=== PATIENT | female | born 1945 | race Caucasian/White ===

== ENCOUNTER → 2017-04-03 | Outpatient (REF) | payer MEDICARE, OTHER ==
[~2017-04-03] MED LIST: CALC600T7 PO; CIPR500T89 PO; LEVO500I7 PO; LEVOTHYROXINE PO; OMEP20TA PO; OMEPPOW18 PO; PERC5TAB6 PO; PERC7.5T12 PO; TAMS0.4C2 PO; TUMS500C PO; VITA10006 PO; VITA100072 PO; VITA200015 PO
== END ==
LOC: M SMT 12:39
PROVIDERS: ATTEND Nurse Practitioner Women's Health
DX: R31.0 Gross hematuria (principal)
CPT/HCPCS: 81001; 87088; 87186; G0463

== ENCOUNTER → 2017-04-06 | Outpatient (CLI) | payer MEDICARE, BC, OTHER ==
--- NOTE | 2017-04-06 16:47 | REP ---
Clinical: Gross hematuria and flank pain. Comparison: 01/21/2016. Findings: The left kidney demonstrates a large parapelvic cyst measuring approximately 6.1 cm confirmed by prior contrast enhanced CT as well as multiple nonobstructing calculi measuring up to approximately 12 mm without hydroureteronephrosis. The right kidney demonstrates a 3 cm anterior cyst confirmed by prior contrast enhanced CT and without nephrolithiasis or hydroureteronephrosis. The bladder is collapsed, but grossly normal in appearance. Liver, spleen, pancreas, and bilateral adrenal glands are normal. The patient is status post cholecystectomy and gastric bypass surgery. There is no evidence for bowel obstruction or acute inflammatory process. Colonic and sigmoid diverticula noted without acute diverticulitis. Normal terminal ileum and appendix identified in the right lower quadrant. Pelvis demonstrates age appropriate uterus / adnexa. No ascites. No free air. No adenopathy. Abdominal aorta without aneurysm. Musculoskeletal structures demonstrate age-related degenerative changes. Impression: 1. Bilateral renal cysts as described above confirmed by prior contrast enhanced CT dated 01/21/2016. Multiple nonobstructing left renal calculi up to approximately 12 mm. No associated hydronephrosis. 2. Colonic diverticula without acute diverticulitis. Signed by Neymar Agrawal MD 04/06/2017 04:38 P
== END ==
LOC: M RAD 16:09
PROVIDERS: ATTEND Nurse Practitioner Women's Health
DX: R31.0 Gross hematuria (principal); N28.1 Cyst of kidney, acquired; N20.0 Calculus of kidney; R10.9 Unspecified abdominal pain

== ENCOUNTER → 2017-04-18 | Outpatient (REF) | payer MEDICARE, OTHER ==
[~2017-04-18] MED LIST changes: +CALC-204 PO; +IRON18TA PO; +MULT1CHW39 PO; +POTA99TA PO; +VITA100054 PO; +VITA400C97 PO; +ZINCLOZ9 PO
== END ==
LOC: M SMT 17:01
PROVIDERS: ATTEND Nurse Practitioner Women's Health
DX: N39.0 Urinary tract infection, site not specified (principal)
CPT/HCPCS: 87086; G0463

== ENCOUNTER → 2017-04-21 | Outpatient (REF) | payer MEDICARE, OTHER ==
[~2017-04-21] MED LIST changes: -CALC-204 PO; -IRON18TA PO; -MULT1CHW39 PO; -POTA99TA PO; -VITA100054 PO; -VITA400C97 PO; -ZINCLOZ9 PO
== END ==
LOC: M SMT 13:04
PROVIDERS: ATTEND Nurse Practitioner Women's Health
DX: N39.0 Urinary tract infection, site not specified (principal)

== ENCOUNTER → 2017-05-04 | Outpatient (REF) | payer MEDICARE, OTHER ==
[~2017-05-04] MED LIST changes: +CALC-204 PO; +MULT1CHW39 PO; +POTA99TA PO; +VITA100054 PO; +VITA400C97 PO; +ZINCLOZ9 PO
[2017-05-04 19:49] LABS: MEAN CORPUSCULAR HEMOGLOBIN 31.2 pg (27.0-33.0); MEAN CORPUSCULAR HGB CONC 33.2 g/dl (32.0-36.5); MEAN CORPUSCULAR VOLUME 94.1 fl (80.0-96.0); RED CELL DISTRIBUTION WIDTH 12.5 % (11.5-14.5); WHITE BLOOD COUNT 9.3 K/mm3 (4.0-10.0)
[2017-05-04 20:02] LABS: ALBUMIN 3.9 GM/DL (3.2-5.2); ALKALINE PHOSPHATASE 131 U/L (45-117); ALT/SGPT 28 U/L (12-78); ANION GAP 6 MEQ/L (8-16); AST/SGOT 20 U/L (15-37); BILIRUBIN,TOTAL 0.5 MG/DL (0.2-1.0); BLOOD UREA NITROGEN 16 MG/DL (7-18); CALCIUM LEVEL 8.6 MG/DL (8.8-10.2); CARBON DIOXIDE LEVEL 29 MEQ/L (21-32); CHLORIDE LEVEL 105 MEQ/L (98-107); CREATININE FOR GFR 0.83 MG/DL (0.55-1.02); GLOMERULAR FILTRATION RATE > 60.0 (>39); GLUCOSE, FASTING 67 MG/DL (83-110); SODIUM LEVEL 140 MEQ/L (136-145); TOTAL PROTEIN 6.9 GM/DL (6.4-8.2)
== END ==
LOC: M SFHCADAM 15:44
PROVIDERS: ATTEND Physician Assistant
DX: Z01.812 Encounter for preprocedural laboratory examination (principal); N20.0 Calculus of kidney; E03.9 Hypothyroidism, unspecified

== ENCOUNTER → 2017-05-04 | Outpatient (CLI) | payer MEDICARE, BC, OTHER ==
[~2017-05-04] MED LIST changes: +CIPR-249 PO; +CIPR500T3 PO; -CIPR500T89 PO; +IRON18TA PO; +PERC5TAB12 PO; -PERC5TAB6 PO; +TYLE650T35 PO
--- NOTE | 2017-05-04 16:38 | REP ---
CHEST, TWO VIEWS: HISTORY: Preoperative. COMPARISON: 02/12/2016 A calcified granuloma is present in the left lower lobe. The right lung is clear. The heart is normal in size. The pulmonary vasculature is normal in appearance. Degenerative change is present in the thoracic spine. IMPRESSION: Old granulomatous disease. Signed by Carl Glover MD 05/04/2017 04:42 P
== END ==
LOC: M ADAMS 15:38
PROVIDERS: ATTEND Physician Assistant
DX: Z01.818 Encounter for other preprocedural examination (principal); N20.0 Calculus of kidney; E03.9 Hypothyroidism, unspecified
CPT/HCPCS: 71020; 80053; 84439; 84443; 85027; G0463

== ENCOUNTER → 2017-05-15 | Outpatient (CLI) | payer MEDICARE, BC, OTHER ==
[~2017-05-15] MED LIST changes: -CIPR-249 PO; +CIPR500T89 PO; +CIPROFLOXACIN/D5W 400 MG/200 ML BAG (J0744) As Ordered ONE; +ETHANOL ALCOHOL 98% INJ 5ML (DEHYDRATED) As Ordered ONE; +ISOVUE-300 61% 50ML VIAL (Q9967) As Ordered ONE; +LIDOCAINE 2% MDV 20 ML VIAL As Ordered ONE; +LR 1,000 ML IV SCH; +MEPERIDINE INJ 25 MG/ML VIAL (J2175) IV PRN; +MIDAZOLAM INJ 2 MG/2 ML VIAL (J2250) As Ordered ONE; +NALBUPHINE HCL 10 MG/ML AMP (J2300) IV PRN; +NORCO, ANEXSIA 5/325MG TABLET (HYDROcodone/ACETAMINOPHEN) PO PRN; +ONDANSETRON 4MG/2ML VIAL (J2405) IV PRN; -PERC5TAB12 PO; +PERC5TAB6 PO; +PERCOCET 5MG/325MG TAB As Ordered ONE; +PERCOCET 5MG/325MG TAB PO PRN; +PROMETHAZINE INJ 25 MG/ML VIAL (J2550) IV PRN; +fentaNYL 100 MCG/2 ML INJECTION (J3010) As Ordered ONE; +fentaNYL 100 MCG/2 ML INJECTION (J3010) IV PRN; +oxyBUTYnin 5 MG TAB PO ONE
[2017-05-15 13:45] VITALS: BP 164/77
--- NOTE | 2017-05-15 18:46 | REPKIM ---
CLINICAL HISTORY: Multiple kidney stones on the left. The referring urology service has asked a nephroureteral catheter (stent) placement/intervention for preop percutaneous nephrolithotripsy urology procedure on the left. Review of the previous cross sectional images showed a large parapelvic recurrent renal cyst compressing and displacing the collecting system on the left. 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 PROCEDURE PERFORMED: 1. Ultrasound Left Kidney 2. Percutaneous antegrade nephrostogram 3. Percutaneous Nephroureteral catheter (stent) placement via the upper pole ( lateral) calyx 4. Percutaneous parapelvic renal cyst drainage catheter placement, Sinogram and Sclerotherapy using alcohol INTERVENTIONALIST: Hayden Loaiza MD CONSENT: The risks, benefits and alternatives to the procedure were explained to the patient and informed written consent was obtained. SEDATION: Sedation and analgesia was provided by the Anesthesiology Dept. MEDICATIONS: Cipro 400mg IV, Local Lidocaine, EtOH EBL: less than 10 mL FLUORO TIME: 14.1 minutes CONTRAST: 30 mL Isovue 300 DEVICES USED: 8.5F 45-cm Catheter; Nephroureteral Catheter Lot#[id number] 6.5F Parapelvic Cyst Resolve Catheter Lot#[id number] PROCEDURE/FINDINGS: The patient received Cipro IV antibiotic. The patient was brought to the interventional radiology suite and placed in the prone position, prepped and draped in the usual sterile fashion. Time out procedure was performed. Ultrasound of the left kidney showed mildly dilated calyces. A large parapelvic renal cyst also identified and localized. NEPHROSTOGRAM AND NU STENT PLACEMENT: Using ultrasound and fluoroscopy guidance , a 21-gauge needle was advanced into the targeted calyx leading to kidney stones, after infiltration of the skin and deep tissues with local anesthetic. Contrast was gently hand injected and antegrade nephrostogram was obtained. Nephrostogram showed opacification of collecting system and renal pelvis containing multiple renal stones. The lower pole calyces projecting medial and cephalad direction and upper pole calyces are seen projecting in the lateral position due to malrotation. Both lower pole and upper pole calyces are displaced from the known large parapelvic cyst. An access was then obtained into the upper pole (lateral) calyx directly leading to kidney stones in the renal pelvis. Using this access a hydrophilic guidewire was introduced, and advanced across the renal stones, into the UPJ/ureter then with its tip positioned into the urinary bladder. A 5-Bengali vascular sheath was introduced with its tip positioned in the renal pelvis. Contrast injection showed patent ureter with antegrade flow of contrast into the urinary bladder. This also showed no filling or communication with the adjacent parapelvic renal cyst. Wire exchange was performed and a stiff guidewire was introduced. An 8.5-Bengali nephroureteral drainage catheter (stent) was introduced over the guidewire. The guidewire was removed and the distal loop of the drainage catheter was curled in the bladder. The nephroureteral catheter was then flushed and capped. PARAPELVIC RENAL CYST DRAINAGE CATHETER PLACEMENT, SINOGRAM AND SCLEROTHERAPY: Using ultrasound and fluoroscopy guidance, a 21-gauge needle was advanced into the targeted parapelvic renal cyst, after infiltration of the skin and deep tissues with local anesthetic. Using this access, a 6.5 Bengali drainage catheter was placed using the Seldinger technique. Contrast injection showed no obvious communication with the adjacent collecting system. Approximately 70 mL of fluid was aspirated. A sample of the renal cyst fluid sent for cytology and culture. The catheter was secured to the skin using 2-0 Prolene suture. The cavity was then aspirated. A total of 20 mL of alcohol was then instilled in the renal cyst for ablation. This was then aspirated out. The catheter was then flushed and connected to a gravity bag. The patient tolerated the procedure well with no immediate complications. This procedure was performed using ultrasound and fluoroscopy. Dr. Loaiza was present. IMPRESSION: 1. Mal-rotaed left kidney with multiple kidney stones in the renal pelvis. The upper pole calyces are located in the lateral and the lower pole calyces are located in the medial aspect as discussed above. The large parapelvic renal cyst compresses and displaces the adjacent collecting system causing hydronephrosis; dilated lower and upper pole calyces. 2. Successful 8.5F nephroureteral catheter (stent) placement via the upper pole (lateral) calyx with its distal loop curled in the urinary bladder. 3. Successful 6.5F parapelvic renal cyst drainage catheter placement, sinogram and sclerotherapy using alcohol as discussed above. A sample of renal cyst fluid sent for cytology and culture. This nephroureteral access will be used for subsequent percutaneous nephrolithotripsy urology procedure on 05/17/17. Continue external drainage of the symptomatic parapelvic renal cyst. I plan to remove the renal cyst drainage catheter on Monday05/17/17 in the preop holding area. These findings and plan discussed via phone with Dr. Joyce. cc: MD Hilary Mtz, [employer] WORKER Ankita Valle, MARIA TERESA DAVIS
== END | disposition home or self-care (01) ==
LOC: M IRPRO 08:47
PROVIDERS: ATTEND Nurse Practitioner Women's Health
DX: N20.0 Calculus of kidney (principal); N28.1 Cyst of kidney, acquired
CPT/HCPCS: 49405; 50433; 87070; 87075; 87205; 88108; 88313; C1729; C1769; C1887; C1894; J0744; J2250; J3010; Q9967

== ENCOUNTER 2017-05-17 08:54 | Inpatient (IN) | payer MEDICARE, BC, OTHER ==
[~2017-05-17] VITALS: Ht 154.9 cm; Wt 90.7 kg
[~2017-05-17 08:54] MED LIST changes: +CIPR-249 PO; -CIPR500T3 PO; -CIPR500T89 PO; -CIPROFLOXACIN/D5W 400 MG/200 ML BAG (J0744) As Ordered ONE; -ETHANOL ALCOHOL 98% INJ 5ML (DEHYDRATED) As Ordered ONE; -IRON18TA PO; -ISOVUE-300 61% 50ML VIAL (Q9967) As Ordered ONE; -LIDOCAINE 2% MDV 20 ML VIAL As Ordered ONE; -LR 1,000 ML IV SCH; -MEPERIDINE INJ 25 MG/ML VIAL (J2175) IV PRN; -MIDAZOLAM INJ 2 MG/2 ML VIAL (J2250) As Ordered ONE; -NALBUPHINE HCL 10 MG/ML AMP (J2300) IV PRN; -NORCO, ANEXSIA 5/325MG TABLET (HYDROcodone/ACETAMINOPHEN) PO PRN; -ONDANSETRON 4MG/2ML VIAL (J2405) IV PRN; +PERC5TAB12 PO; -PERC5TAB6 PO; -PERCOCET 5MG/325MG TAB As Ordered ONE; -PERCOCET 5MG/325MG TAB PO PRN; -PROMETHAZINE INJ 25 MG/ML VIAL (J2550) IV PRN; -TYLE650T35 PO; -fentaNYL 100 MCG/2 ML INJECTION (J3010) As Ordered ONE; -fentaNYL 100 MCG/2 ML INJECTION (J3010) IV PRN; -oxyBUTYnin 5 MG TAB PO ONE
[2017-05-17] MEDS ORDERED: LR 1,000 ML IV ONE (09:15)
[2017-05-17] MEDS ORDERED: CIPROFLOXACIN 400 MG in APPROPRIATE DILUENT 1 EA IV ONE (09:30)
[2017-05-17] MEDS ORDERED: IRON18TA PO (10:36)
[2017-05-17] MEDS ORDERED: CONRAY-60 60% 50ML VIAL (Q9961) As Ordered ONE (12:42)
[2017-05-17] MEDS ORDERED: fentaNYL 100 MCG/2 ML INJECTION (J3010) As Ordered ONE (13:49)
[2017-05-17] MEDS ORDERED: MIDAZOLAM INJ 2 MG/2 ML VIAL (J2250) As Ordered ONE (13:49)
[2017-05-17] MEDS ORDERED: ONDANSETRON 4MG/2ML VIAL (J2405) As Ordered ONE (13:51)
[2017-05-17] MEDS ORDERED: PROPOFOL 500 MG/50 ML VIAL As Ordered ONE (13:51)
[2017-05-17] MEDS ORDERED: dexameTHASONE 4 MG/ML 1ML VIAL (J1100) As Ordered ONE (13:51)
[2017-05-17] MEDS ORDERED: NEOSTIGMINE 1MG/ML 5 ML SYRINGE (J2710) As Ordered ONE (13:51)
[2017-05-17] MEDS ORDERED: ROCURONIUM BROMIDE 50 MG/5 ML VIAL/SYRINGE As Ordered ONE (13:51)
[2017-05-17] MEDS ORDERED: GLYCOPYRROLATE INJ 0.2 MG/ML 2 ML VIAL As Ordered ONE (13:51)
[2017-05-17] MEDS ORDERED: HYDROmorphone HCL 2 MG/ML 1ML VIAL (J1170) As Ordered ONE (13:54)
[2017-05-17] MEDS ORDERED: LIDOCAINE 2% INJ 100 MG/5 ML SDV (FOR ANES.) As Ordered ONE (13:56)
--- NOTE | 2017-05-17 15:05 | REP ---
RETROGRADE PYELOGRAM: THREE VIEWS. HISTORY: Left renal stones. 3 minutes 19 seconds of fluoroscopy time is reported. FINDINGS: A sequence of three, last image hold fluoroscopic spot radiographs of the left upper quadrant document percutaneous large tract access of the intrarenal collecting system of the left kidney and left ureteral stent placement. Signed by Ben Martin MD 05/17/2017 03:24 P
[2017-05-17 15:37] LABS: MEAN CORPUSCULAR HEMOGLOBIN 31.5 pg (27.0-33.0); MEAN CORPUSCULAR HGB CONC 33.7 g/dl (32.0-36.5); MEAN CORPUSCULAR VOLUME 93.3 fl (80.0-96.0); RED CELL DISTRIBUTION WIDTH 12.4 % (11.5-14.5); WHITE BLOOD COUNT 9.9 K/mm3 (4.0-10.0)
[2017-05-17] MEDS ORDERED: MEPERIDINE INJ 25 MG/ML VIAL (J2175) IV PRN (15:45)
[2017-05-17] MEDS ORDERED: ONDANSETRON 4MG/2ML VIAL (J2405) IV PRN ×2 (15:45)
[2017-05-17] MEDS ORDERED: MORPHINE 4 MG/ML 1ML SYRINGE IV PRN (15:45)
[2017-05-17] MEDS ORDERED: fentaNYL 100 MCG/2 ML INJECTION (J3010) IV PRN (15:45)
[2017-05-17] MEDS ORDERED: oxyCODONE 5MG TAB PO PRN (15:45)
[2017-05-17] MEDS ORDERED: METOCLOPRAMIDE INJ 10MG/2ML VIAL (J2765) IV PRN (15:45)
[2017-05-17] MEDS ORDERED: PERCOCET 5MG/325MG TAB PO PRN (15:45)
[2017-05-17] MEDS ORDERED: LR 1,000 ML IV SCH (15:45)
[2017-05-17 15:51] LABS: ANION GAP 5 MEQ/L (8-16); BLOOD UREA NITROGEN 14 MG/DL (7-18); CALCIUM LEVEL 8.4 MG/DL (8.8-10.2); CARBON DIOXIDE LEVEL 30 MEQ/L (21-32); CHLORIDE LEVEL 103 MEQ/L (98-107); CREATININE FOR GFR 0.92 MG/DL (0.55-1.02); GLOMERULAR FILTRATION RATE > 60.0 (>39); GLUCOSE, FASTING 131 MG/DL (83-110); POTASSIUM SERUM 4.2 MEQ/L (3.5-5.1); SODIUM LEVEL 138 MEQ/L (136-145)
[2017-05-17 16:30] VITALS: BP 144/91
[2017-05-17 17:00] VITALS: BP 150/70
[2017-05-17] MEDS: CIPROFLOXACIN 500 MG TAB PO SCH (17:12)
[2017-05-17 18:00] VITALS: BP 142/70
[2017-05-17 19:00] VITALS: BP 150/68
[2017-05-17 20:00] VITALS: BP 129/67
[2017-05-17 21:00] VITALS: BP 124/63
[2017-05-17] MEDS ORDERED: PANTOPRAZOLE 40MG INJ (PROTONIX) (C9113) IV SCH (21:00)
[2017-05-17] MEDS: ACETAMINOPHEN 650MG ER TAB (TYLENOL ARTHRITIS) PO SCH (21:31)
[2017-05-18 01:00] VITALS: BP 131/63
[2017-05-18] MEDS: CIPROFLOXACIN 500 MG TAB PO SCH (05:58)
[2017-05-18] MEDS: ACETAMINOPHEN 650MG ER TAB (TYLENOL ARTHRITIS) PO SCH ×2 (05:58→13:29)
[2017-05-18 06:00] VITALS: BP 126/63
[2017-05-18] MEDS ORDERED: LEVOTHYROXINE 100MCG TABLET (0.1MG) PO SCH (06:00)
[2017-05-18 06:25] LABS: MEAN CORPUSCULAR HEMOGLOBIN 31.2 pg (27.0-33.0); MEAN CORPUSCULAR HGB CONC 34.2 g/dl (32.0-36.5); MEAN CORPUSCULAR VOLUME 91.2 fl (80.0-96.0); RED CELL DISTRIBUTION WIDTH 12.3 % (11.5-14.5); WHITE BLOOD COUNT 13.4 K/mm3 (4.0-10.0)
[2017-05-18 06:50] LABS: ANION GAP 6 MEQ/L (8-16); BLOOD UREA NITROGEN 15 MG/DL (7-18); CALCIUM LEVEL 8.7 MG/DL (8.8-10.2); CARBON DIOXIDE LEVEL 28 MEQ/L (21-32); CHLORIDE LEVEL 106 MEQ/L (98-107); CREATININE FOR GFR 0.96 MG/DL (0.55-1.02); GLOMERULAR FILTRATION RATE > 60.0 (>39); GLUCOSE, FASTING 103 MG/DL (83-110); POTASSIUM SERUM 4.2 MEQ/L (3.5-5.1); SODIUM LEVEL 140 MEQ/L (136-145)
--- NOTE | 2017-05-18 11:21 | RO ---
DATE OF PROCEDURE: 05/17/2017 PREPROCEDURE DIAGNOSIS: Left kidney stones. POSTPROCEDURE DIAGNOSIS: Left kidney stones. PROCEDURE: Left percutaneous nephrolithotripsy plus antegrade double J stent placement #6-Guamanian Ashland Cook. SURGEON: Dr. Juan Francisco Joyce PACKING ROOM INSPECTOR: None. ANESTHESIA: General. COMPLICATIONS: None. ESTIMATED BLOOD LOSS: N/A HISTORY OF PRESENT ILLNESS: This is a 71-year-old female patient that has left kidney stones , a number of six stones. The total stone border is about 4 cm in diameter. For this reason, she has consented for left percutaneous nephrolithotripsy, plus antegrade double J stent placement. DESCRIPTION OF PROCEDURE: The patient in prone position under general anesthesia with the Nickerson catheter draining the bladder, a #16-Guamanian in diameter with 10 mL balloon. We started by prepping and draping the area of concern, which included the left flank. We then proceeded to cut the nephroureteral stent and pass the guidewire down to the bladder. We took the nephroureteral stent out. We extended the incision of the nephroureteral stent in the skin for about 2 cm in diameter and placed a double lumen catheter down to the proximal ureter and placed a second guidewire down to the bladder. We the took a double lumen catheter and following one of the guidewire, we passed a balloon dilator and dilated the nephrostomy tract to 30 Charriere. Once the balloon was dilated and the nephrostomy tract was dilated, we placed Amplatz sheath passing through on top of the balloon and left it in place. We then deflated the balloon and took out the balloon. We had access to the kidney. With a rigid nephroscope, we actually did nephroscopy and with sharp pulls, we sucked all the small pieces of stones from the renal pelvis. We then introduced a flexible cystoscope up to the upper pole. With a 0 tip basket, 1.9 Guamanian in diameter, we grabbed one by one 2 cm stones in the upper pole times four. We then went to the mid pole and with flexible cystoscopy also grabbed with the 0 tip basket, two other stones. Once the kidney was cleared from all of the stones, we did a nephrostogram and there was no stones left after doing a nephroscopy with a flexible cystoscope. We then proceeded to extract the cystoscope and pass a double J stent following one of the guidewires down to the bladder. Once it was in good position, we could take the guidewire and we could see the curl in the kidney and the curl in the bladder. We then took out the Amplatz sheath and passed a Councill tip catheter up to the renal pelvis #6-18 Guamanian in diameter. We took the guidewire out and secured the Councill tip to the skin with a #0-6 silk stitch times three. We then proceeded to do a nephrostomy and there was n no extravasation at all. We then placed a nephrostomy tube to gravity. We placed ABD pads and Tegaderm on top of the nephrostomy tract. PLAN: The patient will pass to the recovery room to the floor. Tomorrow, she will have a CT scan of the abdomen and pelvis, noncontrast to evaluate the upper tract and see that there are no stones left. If there are no stones, we will take the nephrostomy tube out and the Nickerson catheter and she will be discharged home with a double J stent to be taken out 1-2 weeks after in the [facility].
[2017-05-18] MEDS ORDERED: TYLE650T35 PO (16:42)
[2017-05-18] MEDS ORDERED: CIPR500T3 PO (16:42)
--- NOTE | 2017-05-19 08:49 | DSES ---
DATE OF ADMISSION: 05/17/2017 DATE OF DISCHARGE: 05/18/2017 ADMISSION DIAGNOSIS: Left renal stone. DISCHARGE DIAGNOSIS: Left renal stone. SURGERY PERFORMED: Left percutaneous nephrolithotripsy plus antegrade double J stent placement. Surgery performed by Dr. Juan Francisco Joyce. HISTORY OF PRESENT ILLNESS: 71-year-old female patient that had six stones in the left kidney. The total stone border is more than 4 cm. For this reason, she had a nephroureteral stent placement by interventional radiology 24 hours ago. She was consented for a left percutaneous nephrolithotripsy plus antegrade double J stent placement on 05/17/2017. After this procedure, she was admitted. HOSPITAL COURSE: The patient did very well. By postoperative day #1 was tolerated a regular diet. Pain was controlled with oral pain medication. Her urine output was adequate and clear. For this reason on postoperative day #1 we discontinued the nephrostomy tube and placed a urostomy back on the surgical site. The Nickerson catheter was discontinued and the patient voided without any complaints. She requested to go home and we agreed upon this. She will go home with the following medications: - antibiotics, ciprofloxacin 500 mg one tablet by mouth twice a day for 10 days. - Tylenol 650 ER one tablet by mouth every 6 hours as needed for pain. The patient will go home today. She will followup at [facility] in about 2 weeks for removal of the left double J sten. [facility]CH[facility]ATRIC CENTERDeepthi
[2017-06-01 00:06] LABS: Uric Acid 35 % (.)
== END 2017-05-18 17:30 | disposition home or self-care (01) | DRG 661 ==
LOC: M OR 08:54 → M MS5PR 16:17
PROVIDERS: ADMIT Urology; ATTEND Urology
PROC: 0T773DZ Dilation of Left Ureter with Intraluminal Device, Percutaneous Approach (ICD-10-PCS; 2017-05-17)
PROC: 0TC13ZZ Extirpation of Matter from Left Kidney, Percutaneous Approach (ICD-10-PCS; principal; 2017-05-17 11:45)
DX: N20.0 Calculus of kidney (principal); K76.0 Fatty (change of) liver, not elsewhere classified; Z79.899 Other long term (current) drug therapy; E55.9 Vitamin D deficiency, unspecified; K21.9 Gastro-esophageal reflux disease without esophagitis; E03.9 Hypothyroidism, unspecified; Z98.84 Bariatric surgery status; Z87.891 Personal history of nicotine dependence

== ENCOUNTER → 2017-06-28 | Outpatient (REF) | payer MEDICARE, OTHER ==
[~2017-06-28] MED LIST changes: +CIPR500T3 PO; +IRON18TA PO; +TYLE650T35 PO
== END ==
LOC: M SMT 17:15
PROVIDERS: ATTEND Nurse Practitioner Women's Health
DX: N20.0 Calculus of kidney (principal)

== ENCOUNTER → 2017-07-25 | Outpatient (REF) | payer MEDICARE, OTHER | LOC: M SMT 12:51 | PROVIDERS: ATTEND Nurse Practitioner Women's Health | DX: N39.0 Urinary tract infection, site not specified (principal) ==

== ENCOUNTER → 2018-02-08 | Outpatient (CLI) | payer MEDICARE, BC, OTHER ==
[2018-02-08 14:05] LABS: IONIZED CALCIUM 4.8 MG/DL (4.5-5.3)
[2018-02-08 16:09] LABS: ANION GAP 6 MEQ/L (8-16); BLOOD UREA NITROGEN 20 MG/DL (7-18); CALCIUM LEVEL 9.1 MG/DL (8.8-10.2); CARBON DIOXIDE LEVEL 28 MEQ/L (21-32); CHLORIDE LEVEL 107 MEQ/L (98-107); CREATININE FOR GFR 0.97 MG/DL (0.55-1.30); GLOMERULAR FILTRATION RATE > 60.0 (>39); GLUCOSE, FASTING 86 MG/DL (70-100); MAGNESIUM LEVEL 2.4 MG/DL (1.8-2.4); POTASSIUM SERUM 4.6 MEQ/L (3.5-5.1); SODIUM LEVEL 141 MEQ/L (136-145); URIC ACID 3.3 MG/DL (2.6-6.0)
[2018-02-08 18:30] LABS: PTH INTACT 80.9 PG/ML (18.5-88.0)
== END ==
LOC: M SMT 11:24
DX: N20.0 Calculus of kidney (principal)
CPT/HCPCS: 83735

== ENCOUNTER → 2018-04-05 | Outpatient (REF) | payer MEDICARE, OTHER ==
[2018-04-05 19:10] LABS: HEMATOCRIT 38.5 % (36.0-47.0); HEMOGLOBIN 12.3 g/dl (12.0-15.5); MEAN CORPUSCULAR HEMOGLOBIN 30.6 pg (27.0-33.0); MEAN CORPUSCULAR HGB CONC 31.9 g/dl (32.0-36.5); MEAN CORPUSCULAR VOLUME 95.8 fl (80.0-96.0); PLATELET COUNT, AUTOMATED 237 10^3/uL (150-450); RED BLOOD COUNT 4.02 10^6/uL (4.00-5.40); RED CELL DISTRIBUTION WIDTH 12.8 % (11.5-14.5); WHITE BLOOD COUNT 9.6 10^3/uL (4.0-10.0)
[2018-04-05 19:38] LABS: ALBUMIN/GLOBULIN RATIO 1.25 (1.00-1.93); ALKALINE PHOSPHATASE 108 U/L (45-117); ALT/SGPT 25 U/L (12-78); ANION GAP 7 MEQ/L (8-16); AST/SGOT 19 U/L (7-37); BILIRUBIN,TOTAL 0.4 MG/DL (0.2-1.0); BLOOD UREA NITROGEN 25 MG/DL (7-18); CALCIUM LEVEL 8.8 MG/DL (8.8-10.2); CARBON DIOXIDE LEVEL 27 MEQ/L (21-32); CHLORIDE LEVEL 108 MEQ/L (98-107); CREATININE FOR GFR 0.91 MG/DL (0.55-1.30); FREE T4 0.87 NG/DL (0.76-1.46); GLOMERULAR FILTRATION RATE > 60.0 (>39); GLUCOSE, FASTING 103 MG/DL (70-100); POTASSIUM SERUM 3.7 MEQ/L (3.5-5.1); SODIUM LEVEL 142 MEQ/L (136-145); TOTAL PROTEIN 7.2 GM/DL (6.4-8.2)
[2018-04-05 23:30] LABS: TOTAL 25(OH) VITAMIN D 23.2 NG/ML (30.0-100.0)
== END ==
LOC: M SFHCADAM 12:02
DX: R60.9 Edema, unspecified (principal); Z98.84 Bariatric surgery status; E03.9 Hypothyroidism, unspecified; E55.9 Vitamin D deficiency, unspecified
CPT/HCPCS: 84443

== ENCOUNTER → 2019-04-02 | Outpatient (REF) | payer MEDICARE, OTHER ==
[~2019-04-02] MED LIST changes: -MULT1CHW39 PO; +MULT200T7 PO; +VITA100018 PO; -VITA100072 PO
[2019-04-02 20:24] LABS: HEMATOCRIT 38.6 % (36.0-47.0); HEMOGLOBIN 12.1 g/dl (12.0-15.5); MEAN CORPUSCULAR HEMOGLOBIN 30.1 pg (27.0-33.0); MEAN CORPUSCULAR HGB CONC 31.3 g/dl (32.0-36.5); PLATELET COUNT, AUTOMATED 258 10^3/uL (150-450); RED BLOOD COUNT 4.02 10^6/uL (4.00-5.40); WHITE BLOOD COUNT 9.5 10^3/uL (4.0-10.0)
[2019-04-02 21:23] LABS: ALBUMIN 3.7 GM/DL (3.2-5.2); ALT/SGPT 36 U/L (12-78); BILIRUBIN,TOTAL 0.4 MG/DL (0.2-1.0); BLOOD UREA NITROGEN 21 MG/DL (7-18); CALCIUM LEVEL 8.4 MG/DL (8.8-10.2); CARBON DIOXIDE LEVEL 28 MEQ/L (21-32); CHLORIDE LEVEL 107 MEQ/L (98-107); CHOLESTEROL LEVEL 145 MG/DL (<200); CHOLESTEROL RISK RATIO 3.625 (<5); CREATININE FOR GFR 0.82 MG/DL (0.55-1.30); FERRITIN 355 NG/ML (8-252); FOLATE 23.5 NG/ML (>5.4); FREE T4 0.79 NG/DL (0.76-1.46); GLOMERULAR FILTRATION RATE > 60.0 (>39); GLUCOSE, FASTING 98 MG/DL (70-100); HDL CHOLESTEROL 40 MG/DL (>40); LDL CHOLESTEROL 54 MG/DL (<100); NON-HDL-C 105 MG/DL; POTASSIUM SERUM 3.9 MEQ/L (3.5-5.1); SODIUM LEVEL 141 MEQ/L (136-145); TOTAL 25(OH) VITAMIN D 25.3 NG/ML (30.0-100.0); TOTAL PROTEIN 7.3 GM/DL (6.4-8.2); TRIGLYCERIDES LEVEL 253 MG/DL (<150); VITAMIN B12 LEVEL > 2000 PG/ML (247-911)
== END ==
LOC: M SFHCADAM 11:08
PROVIDERS: ATTEND Family Medicine
DX: R60.9 Edema, unspecified (principal); E03.9 Hypothyroidism, unspecified; R30.0 Dysuria; Z98.84 Bariatric surgery status; E55.9 Vitamin D deficiency, unspecified; Z68.32 Body mass index [BMI] 32.0-32.9, adult; K75.81 Nonalcoholic steatohepatitis (NASH)

== ENCOUNTER → 2019-04-11 | Outpatient (CLI) | payer MEDICARE, BC, OTHER ==
--- NOTE | 2019-04-11 17:03 | REP ---
Clinical: Left carotid bruit. Technique: Lopez scale and color Doppler evaluation using linear high frequency transducer Findings: Two-dimensional lopez scale and color images demonstrate normal arterial lumen with laminar flow and no appreciable narrowing. Small focus of calcified plaque identified at the right carotid bulb and small amount of soft plaque noted at the left carotid bulb/proximal internal carotid artery. Color Doppler interrogation demonstrates normal arterial wave patterns and velocities with no significant spectral broadening. Normal flow direction is appreciated in the bilateral vertebral arteries. RIGHT (cm/s) LEFT (cm/s) ICA peak systolic velocity 61.0 68.0 ICA diastolic velocity 21.7 21.0 ECA peak systolic velocity 73.9 53.1 CCA peak systolic velocity 80.9 88.8 ICA/CCA ratio 0.75 0.77 Impression: No hemodynamically significant areas of narrowing or stenosis appreciated. Based on set standards narrowing falls within the normal/less than 50% range. Electronically Signed by Neymar Agrawal MD 04/11/2019 04:55 P
== END ==
LOC: M RAD 14:55
PROVIDERS: ATTEND Family Medicine
DX: R09.89 Other specified symptoms and signs involving the circulatory and respiratory systems (principal)

== ENCOUNTER → 2019-04-24 | Outpatient (CLI) | payer MEDICARE, BC, OTHER ==
--- NOTE | 2019-04-24 18:25 | ECHO ---
DATE OF PROCEDURE: 04/24/2019 AGE: 73 GENDER: Female HEIGHT: 62 inches WEIGHT: 200 pounds BODY SURFACE AREA: 1.91 m2 PATIENT LOCATION: Outpatient. REFERRING PHYSICIAN: Dr. Valle INDICATION: Aortic valve abnormality. 2-D MEASUREMENTS: RV: 3.5 cm LV: 4.8 cm Septum: 0.9 cm Posterior wall: 0.9 cm Aortic root: 3.4 cm Proximal ascending aorta 4.1 cm LA: 4.3 cm LVEF: 75% DOPPLER MEASUREMENTS: AV: 2.2 m/s LVOT: 1.2 m/s LVOT diameter: 1.9 cm Mean AV gradient: 9 mmHg Dimensionless index: 0.58 MV-E: 81 A: 91, EA ratio: 0.9 Early mitral deceleration time 229 ms E prime: 6.6, A prime: 8.2, E/E prime ratio: 12.3 PCWP: 14 mmHg PV: 1.0 m/s Pulmonary artery acceleration time: 100 ms RSVP: 38 mmHg IVC: 2.2 cm COMMENTS: Normal sinus rhythm without intraventricular conduction disturbance. M-mode and two-dimensional echocardiography was performed with pulsed, continuous wave, color flow and tissue Doppler studies. Normal left ventricular size, wall thickness and hyperkinetic wall motion. Mildly dilated left atrium with Doppler evidence of an impairment of LV diastolic function but current estimated mean left atrial pressure upper limits of normal. Normal right heart chamber sizes and motion with Doppler evidence of mild pulmonary hypertension. IVC size upper limits of normal with normal respiratory collapse against an elevated central venous pressure. Mild aortic valvular sclerosis without stenosis and mild insufficiency. Normal aortic root size but slightly dilated proximal ascending aorta. The aortic arch was normal in diameter as was the descending thoracic aorta that was visualized. Slight thickening of the mitral annulus without functional valvular abnormality. Normal tricuspid valve appearance with mild insufficiency. No apparent intracardiac mass or pericardial effusion.
== END ==
LOC: M CARPUL 10:23
PROVIDERS: ATTEND Family Medicine
DX: Q23.9 Congenital malformation of aortic and mitral valves, unspecified (principal)

== ENCOUNTER → 2020-02-05 | Outpatient (REF) | payer MEDICARE, OTHER ==
[~2020-02-05] MED LIST changes: +OMEP-358 PO; -OMEP20TA PO
[2020-02-05 16:24] LABS: APPEARANCE, URINE CLOUDY (CLEAR); BACTERIA, URINE AUTO 2+ (NEGATIVE); BILIRUBIN, URINE AUTO NEGATIVE (NEGATIVE); BLOOD, URINE BLOOD 3+ (NEGATIVE); CALCIUM OXALATE CRYSTALS LARGE; COLOR, URINE AMBER (YELLOW); GLUCOSE, URINE (UA) AUTO NEGATIVE (NEGATIVE); KETONE, URINE AUTO NEGATIVE (NEGATIVE); LEUKOCYTE ESTERASE, URINE AUTO 3+ (NEGATIVE); MUCUS, URINE SMALL (NEGATIVE); NITRITE, URINE AUTO NEGATIVE (NEGATIVE); PROTEIN, URINE AUTO 2+ mg/dL (NEGATIVE); RBC, URINE AUTO TNTC /HPF (0-3); SPECIFIC GRAVITY URINE AUTO 1.027 (1.002-1.035); SQUAMOUS EPITHELIAL CELL UR AU 0 /HPF (0-6); UROBILINOGEN, URINE AUTO 0.2 mg/dL (0.0-2.0); WBC, URINE AUTO TNTC /HPF (0-3)
== END ==
LOC: M SFHCADAM 15:11
PROVIDERS: ATTEND Family Medicine
DX: R30.0 Dysuria (principal)

== ENCOUNTER → 2020-04-16 | Outpatient (REF) | payer MEDICARE, BC, OTHER ==
[~2020-04-16] MED LIST changes: +ACET650T61 PO; +CALC-212 PO; -CALC600T7 PO; -TYLE650T35 PO
[2020-04-16 18:38] LABS: HEMATOCRIT 39.9 % (36.0-47.0); MEAN CORPUSCULAR HEMOGLOBIN 31.4 pg (27.0-33.0); MEAN CORPUSCULAR HGB CONC 32.6 g/dl (32.0-36.5); MEAN CORPUSCULAR VOLUME 96.4 fl (80.0-96.0); PLATELET COUNT, AUTOMATED 246 10^3/uL (150-450); RED BLOOD COUNT 4.14 10^6/uL (4.00-5.40); WHITE BLOOD COUNT 11.3 10^3/uL (4.0-10.0)
[2020-04-16 18:50] LABS: APPEARANCE, URINE TURBID (CLEAR); BACTERIA, URINE AUTO NEGATIVE (NEGATIVE); BILIRUBIN, URINE AUTO NEGATIVE (NEGATIVE); BLOOD, URINE BLOOD 3+ (NEGATIVE); COLOR, URINE AMBER (YELLOW); GLUCOSE, URINE (UA) AUTO NEGATIVE (NEGATIVE); KETONE, URINE AUTO NEGATIVE (NEGATIVE); LEUKOCYTE ESTERASE, URINE AUTO 2+ (NEGATIVE); MUCUS, URINE SMALL (NEGATIVE); NITRITE, URINE AUTO NEGATIVE (NEGATIVE); PROTEIN, URINE AUTO 2+ mg/dL (NEGATIVE); RBC, URINE AUTO TNTC /HPF (0-3); SPECIFIC GRAVITY URINE AUTO 1.019 (1.002-1.035); SQUAMOUS EPITHELIAL CELL UR AU 3 /HPF (0-6); UROBILINOGEN, URINE AUTO 0.2 mg/dL (0.0-2.0); WBC, URINE AUTO TNTC /HPF (0-3)
[2020-04-16 18:59] LABS: ALBUMIN 4.1 GM/DL (3.2-5.2); ALT/SGPT 32 U/L (12-78); BILIRUBIN,TOTAL 0.6 MG/DL (0.2-1.0); BLOOD UREA NITROGEN 22 MG/DL (7-18); CALCIUM LEVEL 9.2 MG/DL (8.8-10.2); CARBON DIOXIDE LEVEL 28 MEQ/L (21-32); CHLORIDE LEVEL 106 MEQ/L (98-107); CHOLESTEROL LEVEL 156 MG/DL (<200); CHOLESTEROL RISK RATIO 3.319 (<5); CREATININE FOR GFR 0.89 MG/DL (0.55-1.30); FERRITIN 415 NG/ML (8-252); FREE T4 0.92 NG/DL (0.76-1.46); GLOMERULAR FILTRATION RATE > 60.0 (>39); GLUCOSE, FASTING 93 MG/DL (70-100); HDL CHOLESTEROL 47 MG/DL (>40); LDL CHOLESTEROL 73 MG/DL (<100); NON-HDL-C 109 MG/DL; POTASSIUM SERUM 4.4 MEQ/L (3.5-5.1); SODIUM LEVEL 142 MEQ/L (136-145); TOTAL PROTEIN 7.1 GM/DL (6.4-8.2); TRIGLYCERIDES LEVEL 178 MG/DL (<150)
[2020-04-16 19:34] LABS: TOTAL 25(OH) VITAMIN D 30.2 NG/ML (30.0-100.0); VITAMIN B12 LEVEL > 2000 PG/ML (247-911)
== END ==
LOC: M SFHCADAM 11:38
PROVIDERS: ATTEND Family Medicine
DX: J01.90 Acute sinusitis, unspecified (principal); R30.0 Dysuria; E03.9 Hypothyroidism, unspecified; Z98.84 Bariatric surgery status; E55.9 Vitamin D deficiency, unspecified; K75.81 Nonalcoholic steatohepatitis (NASH)
CPT/HCPCS: 80053; 80061; 81001; 82306; 82607; 82728; 84439; 84443; 85027; G0463

== ENCOUNTER → 2020-06-15 | Outpatient (CLI) | payer MEDICARE, BC, OTHER ==
--- NOTE | 2020-08-07 12:47 | REP ---
BILATERAL LOWER EXTREMITY DUPLEX VENOUS ULTRASOUND: HISTORY: Pain in leg. COMPARISON: None. FINDINGS: Ankle-brachial indices could not be accomplished due to noncompressible vessels. There is a 6.3 cm Edmonds's cyst in the medial left knee soft tissues. Normal triphasic arterial wave forms are seen throughout the lower extremity arterial tree bilaterally. Mild plaquing is observed. I could not visualize the distal posterior tibial artery on the right. RIGHT LOWER EXTREMITY ARTERIAL DOPPLER VELOCITY CHART: PSV INSPECTOR MACHINE PARTS 204 cm/s Profunda 109 cm/s Proximal SFA 111 cm/s Mid SFA 91 cm/s Distal SFA 63 cm/s Popliteal 77 cm/s Proximal KRISTA 43 cm/s Tibioperoneal trunk 44 cm/s Proximal PORCELAIN FINISHER 86 cm/s Distal PORCELAIN FINISHER Not seen Distal KRISTA 97 cm/s LEFT LOWER EXTREMITY ARTERIAL DOPPLER VELOCITY CHART: PSV INSPECTOR MACHINE PARTS 138 cm/s Profunda 93 cm/s Proximal SFA 114 cm/s Mid SFA 104 cm/s Distal SFA 104 cm/s Popliteal 68 cm/s Proximal KRISTA 73 cm/s Tibioperoneal trunk 75 cm/s Proximal PORCELAIN FINISHER 58 cm/s Distal PORCELAIN FINISHER 44 cm/s Distal KRISTA 68 cm/s MTDD
== END ==
LOC: M RAD 12:45
PROVIDERS: ATTEND Physician Assistant
DX: M79.604 Pain in right leg (principal); M79.605 Pain in left leg; M71.22 Synovial cyst of popliteal space [Baker], left knee; R09.89 Other specified symptoms and signs involving the circulatory and respiratory systems

== ENCOUNTER → 2021-03-31 | Outpatient (REF) | payer MEDICARE, OTHER ==
[2021-03-31 13:07] LABS: HEMATOCRIT 39.7 % (36.0-47.0); HEMOGLOBIN 12.5 g/dl (12.0-15.5); MEAN CORPUSCULAR HEMOGLOBIN 30.1 pg (27.0-33.0); MEAN CORPUSCULAR HGB CONC 31.5 g/dl (32.0-36.5); MEAN CORPUSCULAR VOLUME 95.7 fl (80.0-96.0); PLATELET COUNT, AUTOMATED 225 10^3/uL (150-450); RED BLOOD COUNT 4.15 10^6/uL (4.00-5.40); WHITE BLOOD COUNT 9.4 10^3/uL (4.0-10.0)
[2021-03-31 13:22] LABS: HEMOGLOBIN A1c 5.2 %
[2021-03-31 14:08] LABS: ALT/SGPT 24 U/L (12-78); BILIRUBIN,TOTAL 0.6 MG/DL (0.2-1.0); BLOOD UREA NITROGEN 21 MG/DL (7-18); CALCIUM LEVEL 9.1 MG/DL (8.8-10.2); CARBON DIOXIDE LEVEL 24 MEQ/L (21-32); CHLORIDE LEVEL 109 MEQ/L (98-107); CHOLESTEROL LEVEL 174 MG/DL (<200); CHOLESTEROL RISK RATIO 3.782 (<5); CREATININE FOR GFR 0.79 MG/DL (0.55-1.30); FERRITIN 547 NG/ML (8-252); FREE T4 0.83 NG/DL (0.76-1.46); GLOMERULAR FILTRATION RATE > 60.0 (>39); GLUCOSE, FASTING 81 MG/DL (70-100); HDL CHOLESTEROL 46 MG/DL (>40); LDL CHOLESTEROL 85 MG/DL (<100); NON-HDL-C 128 MG/DL; POTASSIUM SERUM 4.5 MEQ/L (3.5-5.1); SODIUM LEVEL 141 MEQ/L (136-145); TOTAL 25(OH) VITAMIN D 40.9 NG/ML (30.0-100.0); TRIGLYCERIDES LEVEL 214 MG/DL (<150); VITAMIN B12 LEVEL > 2000 PG/ML (247-911)
== END ==
LOC: M SFHCADAM 10:18
PROVIDERS: ATTEND Family Medicine
DX: L30.9 Dermatitis, unspecified (principal); E03.9 Hypothyroidism, unspecified; E74.9 Disorder of carbohydrate metabolism, unspecified; Z98.84 Bariatric surgery status; K75.81 Nonalcoholic steatohepatitis (NASH); Z79.899 Other long term (current) drug therapy
CPT/HCPCS: 80053; 80061; 82306; 82607; 82728; 83036; 84439; 84443; 85027; G0463

== ENCOUNTER → 2021-09-22 | Outpatient (REF) | payer MEDICARE, OTHER ==
[2021-09-22 14:04] LABS: THYROID STIMULATING HORMONE 3.65 uIU/ML (0.358-3.740)
== END ==
LOC: M SFHCADAM 11:12
PROVIDERS: ATTEND Family Medicine
DX: E03.9 Hypothyroidism, unspecified (principal)
CPT/HCPCS: 84439; 84443; G0463

== ENCOUNTER → 2022-05-18 | Outpatient (REF) | payer MEDICARE, OTHER ==
[2022-05-18 13:02] LABS: HEMATOCRIT 39.5 % (36.0-47.0); HEMOGLOBIN 12.8 g/dl (12.0-15.5); MEAN CORPUSCULAR HEMOGLOBIN 30.2 pg (27.0-33.0); MEAN CORPUSCULAR HGB CONC 32.4 g/dl (32.0-36.5); MEAN CORPUSCULAR VOLUME 93.2 fl (80.0-96.0); PLATELET COUNT, AUTOMATED 241 10^3/uL (150-450); RED BLOOD COUNT 4.24 10^6/uL (4.00-5.40); WHITE BLOOD COUNT 12.3 10^3/uL (4.0-10.0)
[2022-05-18 13:24] LABS: HEMOGLOBIN A1c 4.9 %
[2022-05-18 13:35] LABS: ALT/SGPT 26 U/L (12-78); BILIRUBIN,TOTAL 0.8 MG/DL (0.2-1.0); BLOOD UREA NITROGEN 17 MG/DL (7-18); CALCIUM LEVEL 9.1 MG/DL (8.8-10.2); CARBON DIOXIDE LEVEL 27 MEQ/L (21-32); CHLORIDE LEVEL 107 MEQ/L (98-107); CHOLESTEROL LEVEL 159 MG/DL (<200); CHOLESTEROL RISK RATIO 3.533 (<5); CREATININE FOR GFR 0.87 MG/DL (0.55-1.30); FERRITIN 647 NG/ML (8-252); FREE T4 0.96 NG/DL (0.76-1.46); GLOMERULAR FILTRATION RATE > 60.0 (>39); GLUCOSE, FASTING 95 MG/DL (70-100); HDL CHOLESTEROL 45 MG/DL (>40); LDL CHOLESTEROL 70 MG/DL (<100); NON-HDL-C 114 MG/DL; SODIUM LEVEL 142 MEQ/L (136-145); TOTAL PROTEIN 7.1 GM/DL (6.4-8.2); TRIGLYCERIDES LEVEL 220 MG/DL (<150)
[2022-05-18 13:42] LABS: VITAMIN B12 LEVEL > 2000 PG/ML (247-911)
== END ==
LOC: M SFHCADAM 10:05
PROVIDERS: ATTEND Family Medicine
DX: R60.9 Edema, unspecified (principal); E03.9 Hypothyroidism, unspecified; E74.9 Disorder of carbohydrate metabolism, unspecified; Z98.84 Bariatric surgery status; K75.81 Nonalcoholic steatohepatitis (NASH); Z79.899 Other long term (current) drug therapy

== ENCOUNTER → 2023-05-25 | Outpatient (REF) | payer MEDICARE, OTHER ==
[2023-05-25 13:23] LABS: HEMATOCRIT 39.2 % (36.0-47.0); HEMOGLOBIN 12.5 g/dl (12.0-15.5); MEAN CORPUSCULAR HEMOGLOBIN 30.8 pg (27.0-33.0); MEAN CORPUSCULAR HGB CONC 31.9 g/dl (32.0-36.5); MEAN CORPUSCULAR VOLUME 96.6 fl (80.0-96.0); PLATELET COUNT, AUTOMATED 299 10^3/uL (150-450); RED BLOOD COUNT 4.06 10^6/uL (4.00-5.40); WHITE BLOOD COUNT 12.6 10^3/uL (4.0-10.0)
[2023-05-25 13:30] LABS: HEMOGLOBIN A1c 4.9 % (4.0-6.0)
[2023-05-25 13:42] LABS: ALBUMIN 3.9 G/DL (3.2-5.2); ALKALINE PHOSPHATASE 81 U/L (46-116); ALT/SGPT 24 U/L (7.0-40); AST/SGOT 15 U/L (<34); BILIRUBIN,TOTAL 0.5 MG/DL (0.3-1.2); BLOOD UREA NITROGEN 19 MG/DL (9-23); CALCIUM LEVEL 9.5 MG/DL (8.3-10.6); CARBON DIOXIDE LEVEL 27 MMOL/L (20-31); CHLORIDE LEVEL 105 MMOL/L (98-107); CHOLESTEROL LEVEL 163 MG/DL (<200); CHOLESTEROL RISK RATIO 4.05 (<5); CREATININE FOR GFR 0.84 MG/DL (0.55-1.30); FERRITIN 761.3 NG/ML (7.3-270.7); FREE T4 0.88 NG/DL (0.89-1.76); GLOMERULAR FILTRATION RATE > 60.0 (>39); GLUCOSE, FASTING 82 MG/DL (74-106); HDL CHOLESTEROL 40.2 MG/DL (>40); LDL CHOLESTEROL 60.2 MG/DL (<100); NON-HDL-C 122.8 MG/DL; POTASSIUM SERUM 4.2 MMOL/L (3.5-5.1); SODIUM LEVEL 139 MMOL/L (136-145); TOTAL PROTEIN 6.8 G/DL (5.7-8.2); TRIGLYCERIDES LEVEL 313 MG/DL (<150)
[2023-05-25 13:43] LABS: FOLATE > 24.00 NG/ML (>5.4)
[2023-05-25 13:44] LABS: TOTAL 25(OH) VITAMIN D 49.2 NG/ML (20.0-100.0); VITAMIN B12 LEVEL 1985 PG/ML (211-911)
== END ==
LOC: M SFHCADAM 11:31
PROVIDERS: ATTEND Family Medicine
DX: E03.9 Hypothyroidism, unspecified (principal); E74.9 Disorder of carbohydrate metabolism, unspecified; Z98.84 Bariatric surgery status; Z79.899 Other long term (current) drug therapy

== ENCOUNTER → 2023-06-08 | Outpatient (REF) | payer MEDICARE, OTHER ==
[2023-06-08 17:36] LABS: BLOOD UREA NITROGEN 30 MG/DL (9-23); CALCIUM LEVEL 9.3 MG/DL (8.3-10.6); CARBON DIOXIDE LEVEL 29 MMOL/L (20-31); CHLORIDE LEVEL 102 MMOL/L (98-107); CREATININE FOR GFR 0.89 MG/DL (0.55-1.30); GLOMERULAR FILTRATION RATE > 60.0 (>39); GLUCOSE, FASTING 86 MG/DL (74-106); POTASSIUM SERUM 3.6 MMOL/L (3.5-5.1); SODIUM LEVEL 139 MMOL/L (136-145)
== END ==
LOC: M SFHCADAM 14:13
PROVIDERS: ATTEND Physician Assistant
DX: I11.9 Hypertensive heart disease without heart failure (principal)

== ENCOUNTER 2023-07-26 10:08 | Day surgery (SDC) | payer MEDICARE, BC, OTHER ==
[~2023-07-26] VITALS: Ht 154.9 cm; Wt 88.0 kg
[~2023-07-26 10:08] MED LIST changes: +B-12100010 PO; +BSS IRRIG/VANCO(10MG)/TOBRA(5MG)/EPINEPH(1:1000-0.5CC)500ML BAG-ORONLY IR ONE; +CEFUROXIME 1MG/0.1ML INTRACAMERAL INJ As Ordered ONE; +CHLO125TA PO; +CVS500CA5 PO; +CYCLOPENTOLATE 1% OPHTH SOLN 2ML BTL OS SCH; +D-3-50003 PO; +FERR325T3 PO; +GALZ50CA PO; +LEVO125T4 PO; +LIDOCAINE 1% SDV 5ML VIAL As Ordered ONE; +LIDOCAINE 3.5 % 1ML OPHTH TOPICAL GEL OU ONE; +OFLOXACIN 0.3 % (OCUFLOX) OPTH SOL 5ML OS ONE; +OMEP1CAP73 PO; +PHENYLEPHRINE 10% OPHTH SOL 5ML OS PRN; +PHENYLEPHRINE 2.5% OPHTH SOL 2ML OS SCH; +POTASSIUM 99MG PO; +TROPICAMIDE 1% OPHTH SOLN 15ML OS SCH; +VITA-259 PO; +VITA500C24 PO
[2023-07-26] MEDS ORDERED: fentaNYL 100 MCG/2 ML INJECTION As Ordered ONE (12:00)
[2023-07-26] MEDS ORDERED: MIDAZOLAM INJ 2MG/2ML VIAL As Ordered ONE (12:00)
[2023-07-26 12:44] VITALS: BP 144/67; TEMP 97.2; O2SAT 93
== END 2023-07-26 13:10 | disposition home or self-care (01) ==
LOC: M SDC 10:08
PROVIDERS: ATTEND Ophthalmology
DX: H25.12 Age-related nuclear cataract, left eye (principal); I10 Essential (primary) hypertension; E03.9 Hypothyroidism, unspecified; Z98.84 Bariatric surgery status; K21.9 Gastro-esophageal reflux disease without esophagitis; Z88.8 Allergy status to other drugs, medicaments and biological substances; Z79.899 Other long term (current) drug therapy
CPT/HCPCS: 66984; J0697; J2250; J3010; V2632

== ENCOUNTER 2023-08-23 10:35 | Day surgery (SDC) | payer MEDICARE, BC, OTHER ==
[~2023-08-23] VITALS: Ht 154.9 cm; Wt 86.2 kg
[~2023-08-23 10:35] MED LIST changes: +CYCLOPENTOLATE 1% OPHTH SOLN 2ML BTL OD SCH; -CYCLOPENTOLATE 1% OPHTH SOLN 2ML BTL OS SCH; +OFLOXACIN 0.3 % (OCUFLOX) OPTH SOL 5ML OD ONE; -OFLOXACIN 0.3 % (OCUFLOX) OPTH SOL 5ML OS ONE; +PHENYLEPHRINE 10% OPHTH SOL 5ML OD PRN; -PHENYLEPHRINE 10% OPHTH SOL 5ML OS PRN; +PHENYLEPHRINE 2.5% OPHTH SOL 2ML OD SCH; -PHENYLEPHRINE 2.5% OPHTH SOL 2ML OS SCH; +TROPICAMIDE 1% OPHTH SOLN 15ML OD SCH; -TROPICAMIDE 1% OPHTH SOLN 15ML OS SCH
[2023-08-23] MEDS ORDERED: MIDAZOLAM INJ 2MG/2ML VIAL As Ordered ONE (10:41)
[2023-08-23] MEDS ORDERED: fentaNYL 100 MCG/2 ML INJECTION As Ordered ONE (10:41)
[2023-08-23 12:15] VITALS: BP 189/79; TEMP 97.2; O2SAT 94
== END 2023-08-23 13:00 | disposition home or self-care (01) ==
LOC: M SDC 10:35
PROVIDERS: ATTEND Ophthalmology
DX: H25.11 Age-related nuclear cataract, right eye (principal); I10 Essential (primary) hypertension; E03.9 Hypothyroidism, unspecified; K21.9 Gastro-esophageal reflux disease without esophagitis; Z98.84 Bariatric surgery status; Z79.899 Other long term (current) drug therapy
CPT/HCPCS: 66984; J0697; J2250; J3010; V2632

== ENCOUNTER → 2024-01-03 | Outpatient (REF) | payer MEDICARE, OTHER ==
[~2024-01-03] MED LIST changes: -BSS IRRIG/VANCO(10MG)/TOBRA(5MG)/EPINEPH(1:1000-0.5CC)500ML BAG-ORONLY IR ONE; -CEFUROXIME 1MG/0.1ML INTRACAMERAL INJ As Ordered ONE; -CYCLOPENTOLATE 1% OPHTH SOLN 2ML BTL OD SCH; -LIDOCAINE 1% SDV 5ML VIAL As Ordered ONE; -LIDOCAINE 3.5 % 1ML OPHTH TOPICAL GEL OU ONE; -OFLOXACIN 0.3 % (OCUFLOX) OPTH SOL 5ML OD ONE; -PHENYLEPHRINE 10% OPHTH SOL 5ML OD PRN; -PHENYLEPHRINE 2.5% OPHTH SOL 2ML OD SCH; -TROPICAMIDE 1% OPHTH SOLN 15ML OD SCH
== END ==
LOC: M SFHCDERM 13:31
PROVIDERS: ATTEND Nurse Practitioner Family
DX: L57.0 Actinic keratosis (principal); L57.8 Other skin changes due to chronic exposure to nonionizing radiation; B35.9 Dermatophytosis, unspecified

== ENCOUNTER → 2024-05-28 | Outpatient (REF) | payer MEDICARE, BC ==
[~2024-05-28] MED LIST changes: +CRAN500C11 PO; -CVS500CA5 PO
[2024-05-28 13:19] LABS: HEMATOCRIT 38.8 % (36.0-47.0); HEMOGLOBIN 12.8 g/dl (12.0-15.5); MEAN CORPUSCULAR HEMOGLOBIN 30.8 pg (27.0-33.0); MEAN CORPUSCULAR VOLUME 93.5 fl (80.0-96.0); PLATELET COUNT, AUTOMATED 263 10^3/uL (150-450); RED BLOOD COUNT 4.15 10^6/uL (4.00-5.40); WHITE BLOOD COUNT 11.4 10^3/uL (4.0-10.0)
[2024-05-28 13:25] LABS: ALBUMIN 3.9 G/DL (3.2-5.2); ALKALINE PHOSPHATASE 104 U/L (46-116); ALT/SGPT 21 U/L (7.0-40); AST/SGOT 14 U/L (<34); BILIRUBIN,TOTAL 0.5 MG/DL (0.3-1.2); BLOOD UREA NITROGEN 28 MG/DL (9-23); CALCIUM LEVEL 9.4 MG/DL (8.3-10.6); CARBON DIOXIDE LEVEL 28 MMOL/L (20-31); CHLORIDE LEVEL 104 MMOL/L (98-107); CHOLESTEROL LEVEL 149 MG/DL (<200); CHOLESTEROL RISK RATIO 3.95 (<5); CREATININE FOR GFR 0.82 MG/DL (0.55-1.30); GLOMERULAR FILTRATION RATE > 60.0 (>39); GLUCOSE, FASTING 102 MG/DL (74-106); HDL CHOLESTEROL 37.7 MG/DL (>40); LDL CHOLESTEROL 55.1 MG/DL (<100); NON-HDL-C 111.3 MG/DL; POTASSIUM SERUM 3.6 MMOL/L (3.5-5.1); SODIUM LEVEL 141 MMOL/L (136-145); TOTAL PROTEIN 6.6 G/DL (5.7-8.2); TRIGLYCERIDES LEVEL 281 MG/DL (<150)
[2024-05-28 13:26] LABS: THYROID STIMULATING HORMONE 0.085 uIU/ML (0.55-4.78); TOTAL 25(OH) VITAMIN D 61.2 NG/ML (20.0-100.0)
[2024-05-28 13:27] LABS: FERRITIN 1006.4 NG/ML (7.3-270.7); FREE T4 1.44 NG/DL (0.89-1.76); HEMOGLOBIN A1c 4.9 % (4.0-6.0)
[2024-05-28 13:48] LABS: VITAMIN B12 LEVEL > 2000 PG/ML (211-911)
== END ==
LOC: M SFHCADAM 09:37
PROVIDERS: ATTEND Family Medicine
DX: I11.9 Hypertensive heart disease without heart failure (principal); H81.10 Benign paroxysmal vertigo, unspecified ear; E74.9 Disorder of carbohydrate metabolism, unspecified; E03.9 Hypothyroidism, unspecified; Z98.84 Bariatric surgery status

== ENCOUNTER → 2024-12-04 | Outpatient (REF) | payer MEDICARE, BC ==
[~2024-12-04] MED LIST changes: -CRAN500C11 PO; +CVS500CA5 PO; -MULT200T7 PO; +MULT200T9 PO
[2024-12-04 17:55] LABS: HEMATOCRIT 37.9 % (36.0-47.0); HEMOGLOBIN 12.4 g/dl (12.0-15.5); MEAN CORPUSCULAR HEMOGLOBIN 30.3 pg (27.0-33.0); MEAN CORPUSCULAR HGB CONC 32.7 g/dl (32.0-36.5); MEAN CORPUSCULAR VOLUME 92.7 fl (80.0-96.0); PLATELET COUNT, AUTOMATED 254 10^3/uL (150-450); RED BLOOD COUNT 4.09 10^6/uL (4.00-5.40); WHITE BLOOD COUNT 11.8 10^3/uL (4.0-10.0)
[2024-12-04 18:23] LABS: BLOOD UREA NITROGEN 33 MG/DL (9-23); CALCIUM LEVEL 9.4 MG/DL (8.3-10.6); CARBON DIOXIDE LEVEL 30 MMOL/L (20-31); CHLORIDE LEVEL 105 MMOL/L (98-107); GLOMERULAR FILTRATION RATE > 60.0 (>39); GLUCOSE, FASTING 106 MG/DL (74-106); POTASSIUM SERUM 3.5 MMOL/L (3.5-5.1); SODIUM LEVEL 142 MMOL/L (136-145); THYROID STIMULATING HORMONE 0.062 uIU/ML (0.55-4.78)
[2024-12-04 18:24] LABS: FERRITIN 717.3 NG/ML (7.3-270.7)
[2024-12-04 18:26] LABS: FREE T4 1.33 NG/DL (0.89-1.76)
== END ==
LOC: M SFHCADAM 14:16
PROVIDERS: ATTEND Family Medicine
DX: R79.89 Other specified abnormal findings of blood chemistry (principal); E03.9 Hypothyroidism, unspecified; R60.9 Edema, unspecified

== ENCOUNTER → 2025-01-16 | Outpatient (REF) | payer MEDICARE, BC | LOC: M SFHCDERM 08:34 | PROVIDERS: ATTEND Nurse Practitioner Family | DX: L82.1 Other seborrheic keratosis (principal) ==

== ENCOUNTER → 2025-07-01 | Outpatient (REF) | payer MEDICARE, BC ==
[~2025-07-01] MED LIST changes: -GALZ50CA PO; +ZINC50CA4 PO
[2025-07-01 17:14] LABS: PLATELET COUNT, AUTOMATED 244 10^3/uL (150-450)
[2025-07-01 17:36] LABS: ALT/SGPT 21.0 U/L (7.0-40); AST/SGOT 21.0 U/L (<34); CALCIUM LEVEL 9.8 MG/DL (8.3-10.6); CARBON DIOXIDE LEVEL 28.0 MMOL/L (20-31); CHLORIDE LEVEL 104.0 MMOL/L (98-107); CHOLESTEROL LEVEL 162.0 MG/DL (<200); CHOLESTEROL RISK RATIO 3.84 (<5); CREATININE FOR GFR 1.05 MG/DL (0.55-1.30); GLOMERULAR FILTRATION RATE 54.4 (>39); LDL CHOLESTEROL 75.3 MG/DL (<100); NON-HDL-C 119.9 MG/DL; POTASSIUM SERUM 3.7 MMOL/L (3.5-5.1); SODIUM LEVEL 144.0 MMOL/L (136-145); TRIGLYCERIDES LEVEL 223.0 MG/DL (<150)
[2025-07-01 17:37] LABS: FREE T4 1.03 NG/DL (0.89-1.76)
[2025-07-01 19:06] LABS: ESTIMATED AVERAGE GLUCOSE 100.0 MG/DL (60-110)
== END ==
LOC: M SFHCADAM 14:42
PROVIDERS: ATTEND Family Medicine
DX: R79.89 Other specified abnormal findings of blood chemistry (principal); I11.9 Hypertensive heart disease without heart failure; R60.9 Edema, unspecified; E03.9 Hypothyroidism, unspecified; E74.9 Disorder of carbohydrate metabolism, unspecified

== ENCOUNTER → 2025-07-18 | Outpatient (CLI) | payer MEDICARE, BC | LOC: M RAD 09:57 | PROVIDERS: ATTEND Family Medicine | DX: M79.89 Other specified soft tissue disorders (principal) ==